=== PATIENT | female | born 1950 | race Caucasian/White ===

== ENCOUNTER → 2023-11-17 06:27 | Day surgery (SDC) | payer OTHER, SELFPAY | LOC: GI 06:27 | PROVIDERS: ATTENDING PHYSICIAN Internal Medicine; FAMILY PHYSICIAN Family Medicine | DX: K29.50 Unspecified chronic gastritis without bleeding (principal); K90.0 Celiac disease; K44.9 Diaphragmatic hernia without obstruction or gangrene; K31.89 Other diseases of stomach and duodenum; R76.8 Other specified abnormal immunological findings in serum; R12 Heartburn | CPT/HCPCS: 43239; 88305; 88342 ==

== ENCOUNTER 2024-02-26 19:14 | Emergency (ER) | payer OTHER, SELFPAY ==
[2024-02-26 19:14] VITALS: BMI 25.5
[2024-02-26 19:16] VITALS: BP 156/92
[2024-02-26 19:45] LABS: % Basophils 0.7 % (0-2); % Eosinophils 0.4 % (0-6); % Immature Granulocytes 0.3 % (0-0.5); % Lymphocytes 23.1 % (20.5-51.1); % Monocytes 21.7 % (1.7-9.3); % Neutrophils 53.8 % (42.2-75.2); Absolute Basophils 0.1 10^3/uL (0-0.2); Absolute Lymphocytes 1.5 10^3/uL (1.2-3.4); Absolute Monocytes 1.5 10^3/uL (0.1-0.6); Absolute Neutrophils 3.6 10^3/uL (1.4-6.5); Hematocrit 34.3 % (37.0-47.0); Hemoglobin 11.9 g/dL (12.0-16.0); Mean Corp Hgb Conc. 34.7 g/dL (33.0-37.0); Mean Corpuscular Hgb 28.3 pg (27.0-31.0); Mean Corpuscular Volume 81.7 fL (81.0-99.0); Mean Platelet Volume 10.2 fL (7.4-10.4); Nucleated Red Blood Cells % 0 %; Platelet Count 213 10^3/uL (130-400); Red Cell Dist. Width 15.1 % (11.5-14.5); White Blood Cell Count 6.7 10^3/uL (4.8-10.8)
[2024-02-26 19:52] LABS: ALT (SGPT) 31 U/L (0-35); AST (SGOT) 37 U/L (14-36); Alkaline Phosphatase 70 U/L (38-126); Blood Urea Nitrogen 9 mg/dl (7-17); Calcium 8.7 mg/dl (8.4-10.2); Carbon Dioxide 25 mmol/L (22-30); Chloride 98 mmol/L (98-107); Glucose 135 mg/dl (70-99); Potassium 3.4 mmol/L (3.5-5.1); Sodium 133 mmol/L (135-145); Total Bilirubin 0.8 mg/dl (0.2-1.3); eGFR > 60.00
[2024-02-26 20:35] VITALS: BP 134/71
--- NOTE | 2024-02-26 20:59 | ED.GENMED ---
History of Present Illness
General
Chief Complaint: Abdominal Symptoms
Time Seen by Provider: 02/26/24 20:59
Travel History
Have you had any contact with someone who has COVID-19?: No
Do you have any symptoms of coronavirus? Fever > 100 degrees, chills, cough, shortness of breath, sore throat, loss of taste or smell, muscle aches, or headache?: No
History of Present Illness
History of Present Illness:
HPI: The patient just returned today from a [employer] cruise. She has had diarrhea with some abdominal cramping over the past 7 days. She has not been on any recent antibiotics. She states there was no diarrheal outbreak on the cruise. She
has not had any significant vomiting. She has had some decreased p.o. intake. She request something for the cramping sensation.
EXAM:
GENERAL: Well appearing in no distress
HEENT: Moist oral mucosa
CARDIOVASCULAR: No murmurs, normal heart rate, regular rhythm, No chest wall tenderness
PULMONARY: No respiratory distress, breath sounds are clear and equal
ABDOMEN: Soft with no peritoneal signs, no tenderness
NEUROLOGIC: Excellent strength all extremities, no coordination deficits
PSYCHIATRIC: Appropriate mental status, normal insight and judgement
EXTREMITIES: Nontender, no edema, moves all extremities equally
SKIN: No rash, no lesions
TIME OF INITIAL ENCOUNTER: 9:20 PM
NUMBER AND COMPLEXITY OF PROBLEMS ADDRESSED AT THE ENCOUNTER
� Chronic conditions affecting care: Hyperlipidemia, celiac disease
� Acute Exacerbation and/or Progression of Chronic Illness: This is an acute problem
� Differential Diagnosis includes: Viral syndrome, C. difficile, bacterial infection, foodborne illness, dehydration, MILVIA
AMOUNT AND/OR COMPLEXITY OF DATA TO BE REVIEWED AND ANALYZED
� I performed an independent evaluation of and my interpretation is:
EKG:
CT:
X-rays:
Laboratory Studies: White count normal at 6.7, hemoglobin 11.9, potassium slight low at 3.4
Other:
� Review of other/old records:
� Clinical information was obtained by an independent historian: I spoke to the at bedside
� Prescriptions/Medications Considered but not given:
� Further testing considered but not performed: Will hold off on CT imaging as the patient has a soft nontender abdomen and most of her symptoms are related to diarrhea.
RISK OF COMPLICATIONS AND/OR MORBIDITY OR MORTALITY OF PATIENT MANAGEMENT
� Social determinants of health affecting care: Lives at home
� Discussion with other providers:I spoke to the lab�they will not be running the C. difficile tonight�I will call her with results tomorrow.
� Escalation of care including admission/observation vs risk of discharge considered: Other than mild hypokalemia, labs relatively unremarkable including normal white count normal renal function. She was given IV fluids. Stool
studies ordered. She states she has been taking Imodium without much improvement. I generally recommend that she avoid these kind of medications. She appears well-hydrated with relatively unremarkable labs and vital signs. She is afebrile here
but reported a temperature of around 100 �F earlier. Her abdomen is soft.
Past History
Past History
ED Past Medical History: GERD, Hypercholesterolemia, Hypothyroidism and Other (UTI, Cataracts)
ED Past Surgical History: None
Social History
Tobacco: Non-smoker
Alcohol: Occasional
Personal:
Living: with family
Phy Exam
Physical Exam
Physical Exam:
See HPI
Course
Orders/Labs/Results
Orders:
Orders
02/26/24 19:26
CMP [Comprehensive Metabolic Panel] Urgent
Complete Blood Count/With Diff Urgent
02/26/24 21:21
0.9% Sodium Chloride 1000 ml [Nss] 1,000 ml IV BOLUS
02/26/24 21:22
Dicyclomine [Bentyl] 10 mg PO NOW STA
02/26/24 21:41
C DIFF [C difficile Antigen & Toxins] Urgent
NATE Source: Feces/Stool
Specimen Description:
Date Specimen was Collected: 02/26/24
Time Specimen was Collected: 21:40
Stool Culture Urgent
NATE Source: Feces/Stool
Specimen Description:
Date Specimen was Collected: 02/26/24
Time Specimen was Collected: 21:40
02/26/24 22:31
Potassium Chloride Powder [Klor-Con] 20 meq PO NOW STA
Abnormal Lab Results
02/26/24
19:26
Hgb 11.9 L g/dL
(12.0-16.0)
Hct 34.3 L %
(37.0-47.0)
RDW 15.1 H %
(11.5-14.5)
Absolute Monos (auto) 1.5 H 10^3/uL
(0.1-0.6)
Monocytes % 21.7 H %
(1.7-9.3)
Sodium 133 L mmol/L
(135-145)
Potassium 3.4 L mmol/L
(3.5-5.1)
Glucose 135 H mg/dl
(70-99)
AST 37 H U/L
(14-36)
02/26/24 19:26
02/26/24 19:26
Vital Signs
Initial and Last Documented VS:
Initial Vital Signs
Temp Pulse Resp BP Pulse Ox
98.3 F 92 24 156/92 98
02/26/24 19:16 02/26/24 19:16 02/26/24 19:16 02/26/24 19:16 02/26/24 19:16
Last Documented Vital Signs
Temp Pulse Resp BP Pulse Ox
98.3 F 92 24 134/71 97
02/26/24 19:16 02/26/24 19:16 02/26/24 19:16 02/26/24 20:35 02/26/24 20:49
*Critical Care Note
Total Time (30-74mins, 75-104mins- exclusive of procedures): Not Applicable
ED Attending Note
-
Portions of this chart may have been created with voice recognition software.� Occasional wrong word or��sound alike� substitutions may have occurred due to the inherent limitations of voice recognition software.
Discharge Plan
Departure
Patient Disposition: Home (Routine Discharge)
Date of Disposition: 02/26/24
Time of Disposition: 22:31
Patient with high blood pressure during this ER visit?: Yes
Discharge Problem:
Diarrhea
Instructions: Diarrhea and Traveler's Diarrhea, Adult (DC)
Prescriptions:
New
dicyclomine 20 mg tablet
20 mg PO QID PRN (Reason: abdominal cramping) Qty: 14 0RF
No Action
levothyroxine 100 mcg tablet
100 mcg PO DAILY
pravastatin 20 mg tablet
20 mg PO DAILY
estradiol 0.01 % (0.1 mg/gram) cream
1 g VAGINAL .2X WEEKLY
gabapentin 10 % Cream In Packet
1 applic TOPICAL BID
pantoprazole [Protonix] 40 mg tablet,delayed release (DR/EC)
40 mg PO DAILY Qty: 10 0RF
sucralfate [Carafate] 1 gram tablet
1 g PO ACHS Qty: 40 0RF
Rx Instructions:
30min-1 hour before each meal and bedtime
Referrals:
Milton Mason Jr., DO [Family Provider] -
Activity Restrictions/Additional Instructions:
C. difficile study as well as stool cultures are pending. C. difficile study should be back tomorrow. I work tomorrow evening and I will call you after 7 PM. I am also sending a prescription for Bentyl to your pharmacy.
Interventions
Interventions:
*Risk Screen - Suicide Last Done: 02/26/24 19:16
*Neglect/Abuse Screening Last Done: 02/26/24 19:16
WI-Xpuius-Hlfqkxtsgw Assessment Last Done: 02/26/24 20:49
ED- Cardiac Assessment Last Done: 02/26/24 20:49
ED- Neurological Assessment Last Done: 02/26/24 20:49
ED- Pulmonary Assessment Last Done: 02/26/24 20:49
Discharge Date and Time
Print Language: BELARUSIAN
[2024-02-26 21:00] VITALS: BP 125/68
[2024-02-26] MEDS: NSS 1000 IV (21:59)
[2024-02-26 22:00] VITALS: BP 113/67
[2024-02-26] MEDS: BENTYL 10 MG PO (22:00)
[2024-02-26] MEDS: KLOR-CON 20 MEQ PO (22:53)
[2024-02-26 23:00] VITALS: BP 110/56
== END 2024-02-26 23:21 | disposition home or self-care (01) ==
LOC: EMR 19:14
PROVIDERS: Emergency Medicine; EMERGENCY PHYSICIAN Emergency Medicine; FAMILY PHYSICIAN Family Medicine
DX: R19.7 Diarrhea, unspecified (principal); R10.9 Unspecified abdominal pain; K21.9 Gastro-esophageal reflux disease without esophagitis; E78.00 Pure hypercholesterolemia, unspecified; E03.9 Hypothyroidism, unspecified; Z87.440 Personal history of urinary (tract) infections
CPT/HCPCS: 99283; 96360; 80053; 85025; 87045; 87046; 87324; 87427; 87449

== ENCOUNTER → 2024-08-18 13:44 | Outpatient (REF) | payer OTHER, SELFPAY | LOC: WDC 13:44 | PROVIDERS: ATTENDING PHYSICIAN Nurse Practitioner Adult Health; FAMILY PHYSICIAN Family Medicine | DX: Z12.31 Encounter for screening mammogram for malignant neoplasm of breast (principal) | CPT/HCPCS: 77063; 77067 ==

== ENCOUNTER → 2024-11-19 09:06 | Outpatient (REF) | payer OTHER, SELFPAY | LOC: RCS 09:06 | PROVIDERS: ATTENDING PHYSICIAN Internal Medicine Cardiovascular Disease; FAMILY PHYSICIAN Family Medicine | DX: R00.2 Palpitations (principal); Z86.79 Personal history of other diseases of the circulatory system | CPT/HCPCS: 93225; 93226 ==

== ENCOUNTER → 2025-08-20 13:24 | Outpatient (REF) | payer OTHER, SELFPAY | LOC: RAD 13:24 | PROVIDERS: ATTENDING PHYSICIAN Internal Medicine Rheumatology; FAMILY PHYSICIAN Family Medicine | DX: M81.0 Age-related osteoporosis without current pathological fracture (principal) | CPT/HCPCS: 77080 ==

== ENCOUNTER → 2025-08-20 14:00 | Outpatient (REF) | payer OTHER, SELFPAY | LOC: WDC 14:00 | PROVIDERS: ATTENDING PHYSICIAN Nurse Practitioner Adult Health | DX: Z12.31 Encounter for screening mammogram for malignant neoplasm of breast (principal) | CPT/HCPCS: 77063; 77067 ==